=== PATIENT | female | born 1990 | race African-American/Black ===

== ENCOUNTER 2018-06-11 12:10 | Emergency (ER) | payer SELFPAY ==
[~2018-06-11] VITALS: Ht 162.6 cm; Wt 58.3 kg
[2018-06-11 12:23] VITALS: BP 105/58
== END 2018-06-11 12:55 | disposition left against medical advice (07) ==
LOC: ER 12:10
DX: S09.8XXA Other specified injuries of head, initial encounter (principal); W22.8XXA Striking against or struck by other objects, initial encounter; Y93.89 Activity, other specified; Y92.89 Other specified places as the place of occurrence of the external cause; Y99.0 Civilian activity done for income or pay; Z53.21 Procedure and treatment not carried out due to patient leaving prior to being seen by health care provider

== ENCOUNTER 2018-06-12 21:47 | Emergency (ER) | payer SELFPAY ==
[~2018-06-12] VITALS: Ht 165.1 cm; Wt 59.0 kg
[2018-06-12 23:26] LABS: CHLORIDE 110 mEq/L (98-107)
[2018-06-12 23:31] LABS: ETHANOL BLOOD < 10 mg/dL
[2018-06-12 23:33] LABS: HCG SCREEN NEGATIVE
[2018-06-12 23:34] LABS: PROTHROMBIN TIME 10.2 sec (9.1-11.1)
[2018-06-12] MEDS ORDERED: DEXTROSE 50% WATER 50ML SYRINGE IV NR (23:45)
[2018-06-12] MEDS ORDERED: ALTEPLASE 100MG/VIAL IV STA (23:46)
[2018-06-12] MEDS ORDERED: ALTEPLASE IV STA (23:46)
[2018-06-13 00:44] LABS: BASOPHILS % 0.4 % (0.0-2.0); EOSINOPHILS % 1.9 % (0.0-5.0); HEMATOCRIT. 39.1 % (36.0-48.0); HEMOGLOBIN. 12.8 g/dL (12.0-16.0); LYMPHOCYTES % 41.9 % (20.0-50.0); MEAN CORPUSCULAR HEMOGLOBIN 31.8 pg (28.0-32.0); MEAN CORPUSCULAR VOLUME 97.4 fL (81.0-99.0); MEAN PLATELET VOLUME 9.2 fl (7.4-10.4); MONOCYTES % 10.4 % (2.0-8.0); NEUTROPHILS % 45.4 % (40.0-76.0); PLATELET 192 x1000/uL (130-400); RED BLOOD CELL COUNT 4.01 mill/uL (4.2-5.4); RED CELL DISTRIBUTION WIDTH 13.3 % (11.6-14.6)
[2018-06-13] MEDS ORDERED: MORPHINE SULFATE 2 MG/ML CPJ (NOT FOR IM USE) IV ONE (00:45)
[2018-06-13 01:34] LABS: CLARITY URINE CLEAR (CLEAR); COLOR URINE YELLOW (YELLOW); KETONES URINE NEGATIVE (NEGATIVE); LEUKOCYTE ESTERASE URINE NEGATIVE (NEGATIVE); NITRITE URINE POSITIVE (NEGATIVE); OCCULT BLOOD URINE NEGATIVE (NEGATIVE); PROTEIN URINE NEGATIVE (NEGATIVE); SPECIFIC GRAVITY URINE 1.023 (1.005-1.030); UROBILINOGEN URINE 0.2 E.U./dL (0.2-1.0)
[2018-06-13 01:48] VITALS: BP 104/49
[2018-06-13 01:51] LABS: *AMPHETAMINES SCREEN URINE NEGATIVE (NEGATIVE)
[2018-06-13 01:52] LABS: *BARBITURATES SCREEN URINE NEGATIVE (NEGATIVE); *BENZODIAZEPINES SCREEN URINE NEGATIVE (NEGATIVE); *COCAINE SCREEN URINE NEGATIVE (NEGATIVE); METHADONE URINE SCREEN NEGATIVE (NEGATIVE); OPIATES URINE SCREEN NEGATIVE (NEGATIVE)
[2018-06-13 01:53] LABS: PHENCYCLIDINE URINE SCREEN NEGATIVE (NEGATIVE)
[2018-06-13 02:52] LABS: CANNABINOID URINE SCREEN PRESUMTIVE POSITIVE (NEGATIVE)
== END 2018-06-13 01:54 | disposition short-term general hospital (02) ==
LOC: ER 21:47 → CANBEDREQ 06-13 06:04
DX: I63.9 Cerebral infarction, unspecified (principal); E11.649 Type 2 diabetes mellitus with hypoglycemia without coma; F12.10 Cannabis abuse, uncomplicated; J45.909 Unspecified asthma, uncomplicated; F17.290 Nicotine dependence, other tobacco product, uncomplicated; Z98.890 Other specified postprocedural states; Z88.8 Allergy status to other drugs, medicaments and biological substances
CPT/HCPCS: 36415; 37195; 70450; 71045; 72125; 80053; 80305; 81003; 82962; 84484; 84703; 85025; 85610; 93005; 96374; 99291; 99406; G0482; J2997

== ENCOUNTER 2023-06-25 09:12 | Emergency (ER) | payer OTHER ==
[~2023-06-25] VITALS: Ht 165.1 cm; Wt 69.0 kg
[2023-06-25 09:22] VITALS: BP 112/77; PULSE 92; RESP 19; TEMP 98; O2SAT 97
[2023-06-25 10:23] LABS: EOSINOPHILS % 1.8 % (0.0-5.0); HEMATOCRIT. 38.2 % (36.0-48.0); HEMOGLOBIN. 12.5 g/dL (12.0-16.0); LYMPHOCYTES % 42.6 % (20.0-50.0); MEAN CORPUSCULAR HGB CONC 32.6 g/dL (31.0-37.0); MEAN CORPUSCULAR VOLUME 95.1 fL (81.0-99.0); MEAN PLATELET VOLUME 8.6 fl (7.4-10.4); MONOCYTES % 8.3 % (2.0-8.0); NEUTROPHILS % 46.3 % (40.0-76.0); PLATELET 234 x1000/uL (130-400); RED BLOOD CELL COUNT 4.02 mill/uL (4.2-5.4); RED CELL DISTRIBUTION WIDTH 15.1 % (11.6-14.6); WHITE BLOOD COUNT 5.4 x1000/uL (4.5-11.0)
[2023-06-25 10:44] LABS: COLOR URINE BLOODY (YELLOW)
[2023-06-25 10:46] LABS: CLARITY URINE TURBID (CLEAR)
[2023-06-25 10:47] LABS: GLUCOSE URINE TRACE (NEGATIVE); KETONES URINE 2+ (NEGATIVE); NITRITE URINE POSITIVE (NEGATIVE); OCCULT BLOOD URINE 3+ (NEGATIVE); PH URINE 6.5 (4.5-8.0); PROTEIN URINE 3+ (NEGATIVE); UROBILINOGEN URINE >8.0 E.U./dL (0.2-1.0)
[2023-06-25 10:48] LABS: LEUKOCYTE ESTERASE URINE 2+ (NEGATIVE)
[2023-06-25 10:49] LABS: CHLORIDE 112 mEq/L (98-107); INDEX HEMOLYSI 1 (1-3); INDEX ICTERIC 1 (1-4); INDEX LIPEMIC 1 (1-3); SODIUM 141 mEq/L (136-145)
[2023-06-25 10:54] LABS: RBC URINE TNTC /hpf (0-2)
[2023-06-25 10:55] LABS: SQUAMOUS EPITHELIAL CELL URINE NONE SEEN /lpf (RARE/1+); WBC URINE 15-25 /hpf (0-2); YEAST URINE NONE SEEN
[2023-06-25 10:57] LABS: BACTERIA URINE 4+
[2023-06-25 10:59] LABS: ALANINE AMINOTRANSFERASE 21 IU/L (13-61); ALBUMIN 3.5 g/dL (3.4-5.0); ASPARTATE AMINOTRANSFERASE 21 IU/L (15-37); BILIRUBIN TOTAL 0.5 mg/dL (0.1-1.0); CARBON DIOXIDE 26 mEq/L (21-32); CREATININE 0.8 mg/dL (0.6-1.3); GLUCOSE 103 mg/dL (70-105); PROTEIN TOTAL 7.5 g/dL (6.0-8.3); UREA NITROGEN BLOOD 10 mg/dL (7-21)
[2023-06-25 11:10] LABS: HCG SCREEN NEGATIVE
== END 2023-06-25 13:35 | disposition home or self-care (01) ==
LOC: ER 09:12
DX: N99.820 Postprocedural hemorrhage of a genitourinary system organ or structure following a genitourinary system procedure (principal); J45.909 Unspecified asthma, uncomplicated; E11.9 Type 2 diabetes mellitus without complications; Z98.890 Other specified postprocedural states; Z88.6 Allergy status to analgesic agent; Z91.010 Allergy to peanuts
CPT/HCPCS: 36415; 76830; 76856; 80053; 81003; 81025; 84703; 85025; 86850; 86870; 86900; 99284